=== PATIENT | female | born 1990 | race Caucasian/White ===

== ENCOUNTER 2017-01-02 19:26 | Emergency (ER) | payer BC ==
[~2017-01-02] VITALS: Ht 172.7 cm; Wt 58.7 kg
[~2017-01-02 19:26] MED LIST: ALDARA1 EAC1 TP; ATIVAN1 MG PO; CARAFATE1 GM PO; INDOCIN50 MG PO; MINASTRIN 24 F1 EACH PO; NAPROXEN500 MG PO; NO HOME MEDS; PEPCID20 MG PO; PRENATAL TABLE1 EAC3 PO; TYLENOL REGULA325 MG PO; ZOFRAN ODT8 MG PO; ZOFRAN4 MG PO
[2017-01-02 20:08] LABS: ADD MIUA? YES; BILIRUBIN NEGATIVE; BLOOD SMALL; COLOR STRAW ((YELLOW)); GLUCOSE (STRIP) NEGATIVE; KETONES NEGATIVE; LEUKOCYTES SMALL; NITRITE NEGATIVE; PROTEIN (STRIP) NEGATIVE; SPECIFIC GRAVITY 1.005 (1.000-1.030); UROBILINOGEN 0.2 MG/DL (0.2-1.0)
[2017-01-02 20:42] LABS: BACTERIA 1+ /HPF; CASTS NONE SEEN /LPF; CRYSTALS NONE SEEN; EPITHELIAL CELLS 1+ /HPF; MUCUS NONE SEEN /LPF; UCUL ADDED? NO
[2017-01-02 21:02] LABS: HEMATOCRIT 37.1 % (36.0-46.0); MCH 25.3 PG (29.0-34.0); MCHC 31.5 G/DL (30.0-36.0); MCV 80.3 FL (83-99); MEAN PLAT.VOLUME 10.2 uM^3 (9.5-12.4); PLATELET COUNT 183 K/uL (156-360); RBC DIS.WIDTH-CV 14.2 % (11.8-14.6); RBC DIS.WIDTH-SD 41.1 % (39-53); RED BLOOD COUNT 4.62 M/uL (3.80-5.20); WHITE BLOOD COUNT 6.8 K/uL (4.1-10.2)
[2017-01-02 21:11] LABS: CHLORIDE 107 mEq/L (99-109); POTASSIUM 3.6 mEq/L (3.7-5.4); SODIUM 141 mEq/L (136-147)
[2017-01-02 21:13] LABS: GLUCOSE 70 mg/dL (70-99); QUANTITATIVE HCG < 4.0 MIU/ML
[2017-01-02 21:15] LABS: ANION GAP 7 MEQ/L (2-14); TOTAL BILIRUBIN 0.4 mg/dL (0.0-1.0)
[2017-01-02] MEDS ORDERED: PYRIDIUM200 MG PO (21:15)
[2017-01-02] MEDS ORDERED: MACROBID100 MG PO (21:15)
[2017-01-02 21:17] LABS: ALKALINE PHOSPHATASE 66 IU/L (3-129); GFR ESTIMATE (CALCULATED) > 59 mL/min/
[2017-01-02 21:18] LABS: UREA NITROGEN (BUN) 13 mg/dL (9-23)
[2017-01-02 21:21] VITALS: BP 105/71
== END 2017-01-02 21:21 | disposition home or self-care (01) ==
LOC: EME 19:26
DX: N39.0 Urinary tract infection, site not specified (principal); F17.200 Nicotine dependence, unspecified, uncomplicated
CPT/HCPCS: 80053; 81003; 84702; 85027; 87077; 87086; 99281; 99284